=== PATIENT | female | born 1975 | race Caucasian/White ===

== ENCOUNTER 2017-02-21 09:12 | Emergency (ER) | payer MEDICAID ==
[~2017-02-21] VITALS: Ht 162.6 cm; Wt 70.0 kg
[~2017-02-21 09:12] MED LIST: FLUC100T41 PO
[2017-02-21 09:23] VITALS: BP 126/84; PULSE 82; RESP 20; TEMP 98.4; O2SAT 99
--- NOTE | 2017-02-21 09:37 | PD ---
HPI Chief Complaint: Senior [employer] Problem/Complaint Time Seen by Provider: 09:32 Travel History International Travel<30 days: No Contact w/Intl Traveler<30days: No Traveled to known affect area: No History of Present Illness HPI This patient was examined in the presence of a female nurse. 41-year-old female presents for evaluation of vaginal bleeding. Symptoms started 19 days ago. She reports that it started like a normal menstrual cycle however the bleeding has been persistent which prompted evaluation today. She has been using approximately 5-6 pads per day. She has had intermittent left lower quadrant abdominal discomfort as well. Denies nausea, vomiting, lightheadedness or dizziness, fevers or chills, flank pain, dysuria, hematuria. She is not on any anticoagulants, contraceptive. No other complaints. PFSH Past Medical History Tubal Ligation: Yes Social History Alcohol Use: Yes Tobacco Use: Yes Allergies-Medications (Allergen,Severity, Reaction): Coded Allergies: No Known Allergies (Unverified , 04/23/16) Reported Meds & Prescriptions Reported Meds & Active Scripts Active No Active Prescriptions or Reported Medications Review of Systems Except as stated in HPI: all other systems reviewed are Neg Physical Exam Narrative GENERAL: Well-developed well-nourished female in no acute distress SKIN: Warm and dry. HEAD: Atraumatic. Normocephalic. EYES: Pupils equal and round. No scleral icterus. No injection or drainage. ENT: No nasal bleeding or discharge. Mucous membranes pink and moist. NECK: Trachea midline. No JVD. CARDIOVASCULAR: Regular rate and rhythm. No murmur appreciated. RESPIRATORY: No accessory muscle use. Clear to auscultation. Breath sounds equal bilaterally. GASTROINTESTINAL: Abdomen soft, non-tender, nondistended. Hepatic and splenic margins not palpable. MUSCULOSKELETAL: No obvious deformities. No clubbing. No cyanosis. No edema. Pelvic examination performed in the presence of a female nurse: Normal external genitalia. There is some blood noted in vaginal canal. There is no cervical motion tenderness. Mild left adnexal tenderness. No palpable masses. NEUROLOGICAL: Awake and alert. No obvious cranial nerve deficits. Motor grossly within normal limits. Normal speech. Data Data Last Documented VS Vital Signs Date Time Temp Pulse Resp B/P Pulse Ox O2 Delivery O2 Flow Rate FiO2 02/21/17 09:23 98.4 82 20 126/84 99 Room Air Orders Complete Blood Count With Diff (02/21/17 09:35) Comprehensive Metabolic Panel (02/21/17 09:35) Urinalysis - C+S If Indicated (02/21/17 09:35) Iv Access Insert/Monitor (02/21/17 09:35) Ed Urine Pregnancytest Poc (02/21/17 09:35) Act Partial Throm Time (Ptt) (02/21/17 09:35) Prothrombin Time / Inr (Pt) (02/21/17 09:35) Gc And Chlamydia Pcr (02/21/17 10:44) Us Pelvis Comp W Dop Transvag (02/21/17 10:05) Labs Laboratory Tests Test 02/21/17 02/21/17 09:45 10:10 Urine Color YELLOW Urine Turbidity CLOUDY Urine pH 8.0 Urine Specific Monitor 1.021 Urine Protein TRACE mg/dL Urine Glucose (UA) NEG mg/dL Urine Ketones NEG mg/dL Urine Occult Blood SMALL Urine Nitrite NEG Urine Bilirubin NEG Urine Urobilinogen LESS THAN 2.0 MG/DL Urine Leukocyte Esterase NEG Urine RBC 4-9 /hpf Urine WBC 0-2 /hpf Urine Squamous Epithelial 0-5 /hpf Cells Urine Amorphous Sediment MOD Urine Bacteria RARE /hpf Microscopic Urinalysis Comment CULT NOT INDICATED White Blood Count 11.7 TH/MM3 Red Blood Count 4.50 MIL/MM3 Hemoglobin 13.9 GM/DL Hematocrit 40.9 % Mean Corpuscular Volume 90.9 FL Mean Corpuscular Hemoglobin 30.9 PG Mean Corpuscular Hemoglobin 34.0 % Concent Red Cell Distribution Width 15.2 % Platelet Count 357 TH/MM3 Mean Platelet Volume 7.4 FL Neutrophils (%) (Auto) 69.8 % Lymphocytes (%) (Auto) 17.1 % Monocytes (%) (Auto) 8.9 % Eosinophils (%) (Auto) 3.3 % Basophils (%) (Auto) 0.9 % Neutrophils # (Auto) 8.2 TH/MM3 Lymphocytes # (Auto) 2.0 TH/MM3 Monocytes # (Auto) 1.0 TH/MM3 Eosinophils # (Auto) 0.4 TH/MM3 Basophils # (Auto) 0.1 TH/MM3 CBC Comment DIFF FINAL Differential Comment Prothrombin Time 10.3 SEC Prothromb Time International 0.9 RATIO Ratio Activated Partial 29.5 SEC Thromboplast Time Sodium Level 138 MEQ/L Potassium Level 4.0 MEQ/L Chloride Level 102 MEQ/L Carbon Dioxide Level 27.5 MEQ/L Anion Gap 9 MEQ/L Blood Urea Nitrogen 9 MG/DL Creatinine 0.60 MG/DL Estimat Glomerular Filtration 110 ML/MIN Rate Random Glucose 80 MG/DL Calcium Level 9.7 MG/DL Total Bilirubin 0.3 MG/DL Aspartate Amino Transf 22 U/L (AST/SGOT) Alanine Aminotransferase 24 U/L (ALT/SGPT) Alkaline Phosphatase 113 U/L Total Protein 8.4 GM/DL Albumin 4.0 GM/DL [facility] Medical Decision Making Medical Screen Exam Complete: Yes Emergency Medical Condition: Yes Medical Record Reviewed: Yes Interpretation(s) CBC WBC 11.7 CMP unremarkable Urine test negative Urinalysis small blood otherwise unremarkable Differential Diagnosis Abnormal uterine bleeding, cervicitis, malignancy, anemia, fibroid, , ectopic Narrative Course 41-year-old female here with 19 days of vaginal bleeding, some left adnexal discomfort. Plan is for basic lab work, pelvic examination, urinalysis, pelvic ultrasound. The patient's laboratory is reassuring. Negative test. Hemoglobin is stable. Ultrasound reveals 8mm oval hypervascular area and the fundal endometrial stripe. Most likely differential diagnosis possibilities include polyp and submucosal fibroid. There is a 2.9 cm simple cyst in left ovary. The patient was given a copy of her ultrasound report. 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 She is stable for discharge. 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 Return for any emergent medical conditions. Med/Other Pt SpecificInfo: No Change to Meds Scripts No Active Prescriptions or Reported Meds Disposition: 01 DISCHARGE HOME Condition: Stable Tu Vega Feb 21, 2017 09:37
[2017-02-21 10:20] LABS: AUTOMATED NEUTROPHIL # 8.2 TH/MM3 (1.8-7.7); BASOPHIL # 0.1 TH/MM3 (0-0.2); BASOPHIL % 0.9 % (0.0-2.0); EOSINOPHIL # 0.4 TH/MM3 (0-0.4); EOSINOPHIL % 3.3 % (0.0-4.0); HEMATOCRIT 40.9 % (35.0-46.0); HEMO FLAGS DIFF FINAL; LYMPH % 17.1 % (9.0-44.0); MEAN CELL VOLUME 90.9 FL (80.0-100.0); MEAN CORPUSCULAR HEMOGLOBIN 30.9 PG (27.0-34.0); MONO % 8.9 % (0.0-8.0); NEUT % 69.8 % (16.0-70.0); PLATELET COUNT 357 TH/MM3 (150-450); RED CELL DISTRIBUTION WIDTH 15.2 % (11.6-17.2); WHITE BLOOD COUNT 11.7 TH/MM3 (4.0-11.0)
[2017-02-21 10:32] LABS: APTT (PATIENT) 29.5 SEC (24.3-30.1); INTERNATIONAL NORMALIZED RATIO 0.9 RATIO; PROTHROMBIN TIME - PATIENT 10.3 SEC (9.8-11.6)
[2017-02-21 10:36] LABS: ANION GAP 9 MEQ/L (5-15); BICARBONATE 27.5 MEQ/L (21.0-32.0); BLOOD UREA NITROGEN 9 MG/DL (7-18); CHLORIDE 102 MEQ/L (98-107); GLOMERULAR FILTRATION RATE 110 ML/MIN (>89); SODIUM (NA) 138 MEQ/L (136-145)
[2017-02-21 10:37] LABS: AST (GOT) 22 U/L (15-37)
[2017-02-21 10:40] LABS: ALKALINE PHOSPHATASE 113 U/L (45-117); ALT (GPT) 24 U/L (10-53); TOTAL BILIRUBIN ADULT 0.3 MG/DL (0.2-1.0)
[2017-02-21 10:42] LABS: BLOOD, URINE SMALL (NEG); GLUCOSE,URINE NEG (NEG); KETONE, URINE NEG (NEG); NITRITE,URINE NEG (NEG); URINE COLOR YELLOW (YELLW/STRAW)
[2017-02-21 10:56] LABS: BACTERIA, URINE RARE /hpf; WBC, URINE 0-2 /hpf (0-5)
[2017-02-21 10:57] LABS: COMMENT (UR) CULT NOT INDICATED; COMMENT2 (UR) CULT NOT INDICATED; CULTURE IF INDICATED CULT NOT INDICATED; SQUAMOUS EPITHELIAL CELL URINE 0-5 /hpf (0-5)
--- NOTE | 2017-02-21 11:54 | RADRPT ---
EXAM DATE/TIME: 02/21/2017 10:38 [facility] COMPARISON: No previous studies available for comparison. INDICATIONS : Pelvic pain. MEDICAL HISTORY : Deep venous thrombosis. Pelvic pain. SURGICAL HISTORY : Tubal ligation. Tonsillectomy. Cholecystectomy. Hysterectomy. ENCOUNTER: Initial ACUITY: > 1 year PAIN SCORE: 4/10 LOCATION: Bilateral pelvis MEASUREMENTS: UTERUS: 8.7 x 5.4 x 5.7 cm ENDOMETRIAL STRIPE: 14 mm RIGHT OVARY: 2.9 x 1.2 x 2.8 cm LEFT OVARY: 4.8 x 2.6 x 3.9 cm FINDINGS: UTERUS: 8mm oval area of hypoechogenicity within the posterior fundal endometrial stripe. RIGHT OVARY: Ovary contains no mass or significant cystic lesion. Normal color Doppler flow. LEFT OVARY: 2.9 x 2.5 cm simple cyst in the left ovary. Normal color Doppler flow. MISCELLANEOUS: Trace free fluid. CONCLUSION: 1. 8mm oval hypervascular area of hypoechogenicity in the fundal endometrial stripe. 2. Most likely differential diagnosis possibilities include endometrial polyp and submucosal fibroid. 2.9 cm simple cyst in the left ovary. Jeffry Singh MD on February 21, 2017 at 11:49 Board Certified Radiologist. This report was verified electronically.
[2017-02-21 12:37] LABS: CHLAMYDIA PCR NOT DETECTED (NOT DETECT); NEISSERIA PCR NOT DETECTED (NOT DETECT)
== END 2017-02-21 12:59 | disposition home or self-care (01) ==
LOC: NEPD 09:12
DX: N93.9 Abnormal uterine and vaginal bleeding, unspecified (principal); N85.9 Noninflammatory disorder of uterus, unspecified; R10.32 Left lower quadrant pain; Z72.0 Tobacco use; Z98.51 Tubal ligation status
CPT/HCPCS: 76830; 76856; 80053; 81001; 84703; 85025; 85610; 85730; 87491; 87591; 93975; 99284

== ENCOUNTER → 2017-05-20 | Day surgery (SDC) | payer MEDICAID ==
--- NOTE | 2017-05-19 11:36 | MH ---
cc: DAJA RYAN MD DATE OF ADMISSION: 05/20/2017 REASON FOR ADMISSION This patient is a 41-year-old white female being admitted to [facility] for evaluation and therapy of hypermenorrhea. HISTORY OF PRESENT ILLNESS The patient is well-known to our practice. She has been seen and worked up for hypermenorrhea which included transvaginal ultrasound. On transvaginal ultrasound the endometrial stripe was thickened to 14 mm. There was also one report of a possible polyp. Because of this and her age we consented for D&C and hysteroscopy for evaluation. PAST MEDICAL HISTORY The patient is somewhat obese. She is not currently under treatment for hypertension or diabetes. PAST SURGICAL HISTORY 1. Cholecystectomy. 2. Surgery on her breast for discharge. 3. Tonsillectomy. GYNECOLOGICAL HISTORY She is 7, para 4. Again, with history of extremely heavy periods with the passage of numerous clots. FAMILY HISTORY Her mother has a history of diabetes. SOCIAL HISTORY She is a smoker and uses both cigars and cigarettes. She describes alcohol use socially. REVIEW OF SYSTEMS Essentially noncontributory. PHYSICAL EXAMINATION GENERAL: The patient was seen well-developed, well-nourished in no acute distress. VITAL SIGNS: Blood pressure 130/70, pulse 70, respirations 12. HEENT: Negative. CHEST: Clear on auscultation. CARDIOVASCULAR: Regular rate. ABDOMEN: Soft. Bowel sounds were positive. PELVIC: The uterus was normal in size. There were no adnexal masses palpable. EXTREMITIES: No clubbing, cyanosis or edema. NEUROPSYCHIATRIC: The patient was oriented x3 and showed no gross neurocranial deficit. IMPRESSION The impression on admission has hypermenorrhea with thickened endometrial stripe of 14 mm. PLAN The plan is for D&C and hysteroscopy. MD ISAK Pitts/CLEM /11:08 AM /11:16 AM
[~2017-05-20] VITALS: Ht 160 cm; Wt 72.1 kg
[~2017-05-20] MED LIST changes: +ACETAMINOPHEN 1000 MG/100 ML 100 ML IV ONE; +CHLORHEXIDINE GLUCONATE 2 % 1 PACK (2 CLOTHS) TOPICAL PRN; +DEXAMETHASONE SOD PHOS 4 MG/ML VIAL ONE; +DO NOT ADM ANY ANTICOAGULANT DRUGS PRN; +FAMOTIDINE 20 MG/2 ML VIAL ONE; -FLUC100T41 PO; +INSULIN HUMAN REGULAR 1,000 UNITS/10 ML VIAL SQ PRN; +LACTATED RINGER'S 1000 ML IV PRN; +METOPROLOL TARTRATE 25 MG TAB PO PRN; +MIDAZOLAM HCL 2 MG/2 ML VIAL ONE; +ONDANSETRON HCL 4 MG/2 ML VIAL IV PUSH ONE; +POVIDONE IODINE 5% (ANTISEPSIS KIT) 4 APPLICATIONS EACH NARE PRN; +PROPOFOL 200 MG/20 ML AMP IV ONE; +SODIUM CHLORID 0.9% 500 ML IV PRN; +ceFAZolin 2 GM PREMIX 50 ML IV SCH
[2017-05-20 09:20] VITALS: BP 120/71; PULSE 64; RESP 16; TEMP 98.2; O2SAT 99
--- NOTE | 2017-05-22 21:18 | MP ---
cc: DAJA RANKIN DATE OF SURGERY 05/20/17 PREOPERATIVE DIAGNOSIS Hypermenorrhea. POSTOPERATIVE DIAGNOSIS Hypermenorrhea, endometrial polyps. SURGEON Shannan Rankin MD ANESTHESIA General ESTIMATED BLOOD LOSS 100 mL SURGEON Shannan Rankin MD [employer] None. COMPLICATIONS None. FINDINGS Consistent with a fluffy endometrium with some evidence of endometrial polyps. We had the Myosure ready, however, it could not be used because of the patient's endometrial bleeding during the procedure. PROCEDURE IN DETAIL Patient prepped and draped in dorsal lithotomy position. Weighted speculum was placed in the posterior vaginal wall and anterior lip of the cervix grasped with a single tooth tenaculum. Cervix was dilated up using Nick dilators and then a hysteroscope was then inserted in the endometrial cavity. The endometrium appeared thickened with some evidence of polyp formation. We attempted to use Myosure but because of poor visibility Myosure was not fired. We then used the sharp curetting instrument to curette all areas of the endometrium and then used the hysteroscope again to visualized the endometrium to make sure that the endometrial had been well curetted with no evidence of any polyp formation. After good hemostasis was noted, tenaculum and speculum removed. The patient returned to recovery room in stable condition. MD ISAK Pitts/ /8:14 AM /9:07 PM
== END | disposition home or self-care (01) ==
LOC: HSDC 05:44
PROVIDERS: ATTEND Obstetrics & Gynecology
DX: N92.0 Excessive and frequent menstruation with regular cycle (principal); F17.210 Nicotine dependence, cigarettes, uncomplicated; E66.9 Obesity, unspecified; Z68.28 Body mass index [BMI] 28.0-28.9, adult
CPT/HCPCS: 00952; 58558; 88305; J0131; J0690; J1100; J2250; J2405; J3010; J7120